=== PATIENT | female | born 1995 | race Asian ===

== ENCOUNTER 2017-03-05 19:23 | Emergency (ER) | payer OTHER ==
[2017-03-05] MEDS ORDERED: Ibuprofen TAB* 200 MG PO ONE (19:43)
[2017-03-05] MEDS ORDERED: Ibuprofen TAB* 600 MG ONE (20:30)
--- NOTE | 2017-03-05 20:49 | RAD ---
INDICATION: Left knee pain COMPARISON: None TECHNIQUE: AP, lateral, tunnel, and sunrise views were obtained. FINDINGS: The bony structures, joint spaces, and soft tissues are normal for age. IMPRESSION: NEGATIVE EXAMINATION.
[2017-03-05] MEDS ORDERED: Ibuprofen TAB* 600 MG PO ONE (21:28)
[2017-03-05 21:58] VITALS: BP 124/66
--- NOTE | 2017-03-05 22:15 | ED ---
Lower Extremity - HPI Summary HPI Summary: Pt is a 21 y/o F who presents to ED c/o L knee pain s/p injury. While playing tennis at 1830 she reports that her knee bent laterally and that she heard a pop. Pt cannot bear weight and has been unable to since the incident. Pain began immediately upon onset and has been constant since onset. Pain is currently mild, ranked 3/10, characterized as sharp and discrete to the L knee. Sx aggravated by ambulation, alleviated by nothing. Denies fever. PSHx R knee ACL repair. - History of Current Complaint Chief Complaint: EDExtremityLower Stated Complaint: LT LEG INJURY Time Seen by Provider: 03/05/17 19:37 Hx Obtained From: Patient Mechanism Of Injury: Twisted Onset of Pain: Immediate Onset/Duration: Minutes Severity Initially: Moderate Severity Currently: Moderate Pain Intensity: 2 Pain Scale Used: 0-10 Numeric Timing: Constant Location: Is Discrete @ - left knee Associated Signs And Symptoms: Positive: Swelling Aggravating Factor(s): Standing, Ambulation, Movement, Weight Bearing Alleviating Factor(s): Rest Able to Bear Weight: No - Risk Factors Gout Risk Factors: Negative DVT Risk Factors: Negative Septic Arthritis Risk Factor: Negative - Allergies/Home Medications Allergies/Adverse Reactions: Allergies Allergy/AdvReac Type Severity Reaction Status Date / Time No Known Allergies Allergy Verified 03/05/17 19:24 PMH/Surg Hx/FS Hx/Imm Hx Previously Healthy: Yes Endocrine/Hematology History: Denies: Hx Diabetes Cardiovascular History: Denies: Hx Hypertension, Hx Pacemaker/ICD Respiratory History: Denies: Other Respiratory Problems/Disorders Sensory History: Denies: Hx Contacts or Glasses, Hx Hearing Aid Opthamlomology History: Denies: Hx Contacts or Glasses Psychiatric History: Denies: Hx Panic Disorder - Immunization History Hx Pertussis Vaccination: No Immunizations Up to Date: Unable to Obtain/Confirm Infectious Disease History: No Infectious Disease History: Denies: Traveled Outside the [place] in Last 30 Days - Social History Occupation: Unemployed Alcohol Use: None Hx Substance Use: No Substance Use Type: Reports: None Hx Tobacco Use: No Smoking Status (MU): Never Smoked Tobacco Review of Systems Constitutional: Negative Eyes: Negative Cardiovascular: Negative Respiratory: Negative Positive: no symptoms reported, see HPI Positive: Arthralgia Skin: Negative Neurological: Negative All Other Systems Reviewed And Are Negative: Yes Physical Exam Triage Information Reviewed: Yes Vital Signs On Initial Exam: Vital Signs Reviewed: Yes Appearance: Positive: Well-Appearing, Well-Nourished Skin: Positive: Warm, Skin Color Reflects Adequate Perfusion, Other - swelling over left knee Eyes: Positive: EOMI, TRACY, Conjunctiva Clear Neck: Positive: Supple, Nontender, No Lymphadenopathy Respiratory/Lung Sounds: Positive: Clear to Auscultation, Breath Sounds Present Cardiovascular: Positive: Normal, Pulses are Symmetrical in both Upper and Lower Extremities Musculoskeletal: Positive: Other - Alix and the Anterior drawer all normal and without pain. pivot shift ilicits pain to the inferior portion of the knee Neurological: Positive: Sensory/Motor Intact, Alert, Oriented to Person Place, Time, Speech Normal Psychiatric: Positive: Normal Diagnostics - Vital Signs Vital Signs Temp Pulse Resp BP Pulse Ox 03/05/17 21:57 97 F 78 17 124/66 03/05/17 19:24 98.7 F 84 18 132/89 100 - Laboratory Lab Statement: Any lab studies that have been ordered have been reviewed, and results considered in the medical decision making process. Lower Extremity Course/Dx - Course Course Of Treatment: Patient arrives after a stop and pivot twist to the left knee during tennis. She denies pain on palpation with physical exam. Alix and the Anterior drawer all normal and without pain. pivot shift ilicits pain to the inferior portion of the knee. NDICATION: Left knee pain. COMPARISON: None. TECHNIQUE: AP, lateral, tunnel, and sunrise views were obtained. FINDINGS: The bony structures, joint spaces, and soft tissues are normal for age. IMPRESSION: NEGATIVE EXAMINATION. Patient states she would like to have it repaired in [place] and she is going there next week. I have referred her to Dr. 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 Knee immobilizer given, encouraged IBuprofen and crutches given. Not dx with ACL, but patient believes it feels the same as her previous ACL. Dx with muscle strain. - Diagnoses Differential Diagnosis/HQI/PQRI: Positive: Dislocation, Fracture (Closed), Fracture (Open), Sprain, Strain Provider Diagnoses: Muscle strain of left knee Discharge - Discharge Plan Condition: Stable Disposition: HOME Patient Education Materials: Knee Sprain (ED), Knee Immobilizer (ED) Referrals: Baldemar Barnett MD [Medical Doctor] - [facility] [Primary Care Provider] - Maria Xie MD [Medical Doctor] - Additional Instructions: Follow up with Dr. Barnett or Dr. Xie. Call office tomorrow to set up appt Crutches for ambulation given. Knee immobilizer given Ibuprofen 600mg three times daily with meals for pain. Follow up with orthopedic physician in 5-7 days. If numbness, tingling, decreased sensation, increased pain, temperature changes or pallor noted in toes, come back to ER immediately. Protect the area. For your comfort level, do not bear weight, pull or push until you can injury is somewhat healed. This may involve the need for immobilization or crutches for a period of time. Rest the involved area, but not too long. You may need to be off your injury for some time to allow for healing, however excessive immobilization of joints can lead to stiffness and delay healing time. Early mobilization is encouraged if it is pain-free. Ice. Not directly on the skin. Cover with a towel. Apply ice no more than 30 minutes at a time Compression: You may use and keep an socorro wrap bandage over the injury to decrease swelling. Again, this should be limited and be taken off periodically to encourage early range of motion and mobilization. Elevate: Try to elevate the injured area above the heart whenever possible.
== END 2017-03-05 21:59 | disposition home or self-care (01) ==
LOC: ED 19:23
DX: S86.912A Strain of unspecified muscle(s) and tendon(s) at lower leg level, left leg, initial encounter (principal); M25.562 Pain in left knee; X58.XXXA Exposure to other specified factors, initial encounter; Y93.9 Activity, unspecified; Y92.9 Unspecified place or not applicable
CPT/HCPCS: 99282; A9270-GY